=== PATIENT | male | born 1955 ===

== ENCOUNTER 2019-04-24 12:24 | Inpatient (IN) | payer MEDICAID ==
[~2019-04-24] VITALS: Ht 177.8 cm; Wt 69.1 kg
--- NOTE | 2019-04-24 14:45 | NUR ---
RECIEVED PT. PT HAS A L FA PIV THAT IS SL. HE IS A&O. BED LOCKED AND IN LOWEST POSITION. CALL LIGHT WITHIN REACH. PT SPEAKS LITTLE GHANAIAN SO CALLED FOR ENGINEERING SURVEYOR PHONE TO BE BROUGHT TO ROOM. WILL ROSALIA
[2019-04-24] MEDS ORDERED: SODIUM BICARBO650 MG PO (15:10)
[2019-04-24] MEDS ORDERED: LEVOTHYROXINE75 MCG PO (15:10)
[2019-04-24] MEDS ORDERED: VITAMIN D250000 UNIT PO (15:11)
[2019-04-24] MEDS ORDERED: NORVASC10 MG PO (15:12)
[2019-04-24] MEDS ORDERED: CARAFATE1 G PO (15:12)
[2019-04-24] MEDS ORDERED: THORAZINE25 MG PO (15:14)
[2019-04-24] MEDS ORDERED: REMERON15 MG PO (15:15)
[2019-04-24] MEDS ORDERED: PHENERGAN25 M1 PO (15:17)
[2019-04-24] MEDS ORDERED: GLUCOTROL ER2.5 MG PO (15:27)
[2019-04-24 15:34] VITALS: BP 124/61; BMI 22.4
[2019-04-24 17:20] VITALS: BP 124/61
[2019-04-24 20:00] VITALS: BP 152/76
--- NOTE | 2019-04-24 20:00 | NUR ---
ALERT RESTING IN BED, DENIES PAIN, FAMILY AT BEDSIDE, SEE SHIFT ASSESSEMEN, CALL LIGHT IN REACH, NO NEEDS VOICED AT THIS TIME
[2019-04-24 22:30] VITALS: BP 163/87
[2019-04-25 04:00] VITALS: BP 173/90
[2019-04-25 04:47] LABS: BASOPHILS 0.2 % (0-2); EOSINOPHILS 2.5 % (0-7); HEMATOCRIT 31.9 % (42.0-54.0); HEMOGLOBIN 11.4 g/dL (13.5-17.5); IMMATURE GRANULOCYTES 0.1 % (0-5); MCH 29.5 pg (26.0-34.0); MCHC 35.7 g/dL (31.0-37.0); MCV 82.6 fL (80.0-100.0); MEAN PLATELET VOLUME 9.5 fL (7.4-10.4); MONOCYTES 4.6 % (2-11); NEUTROPHILS 77.6 % (40-80); PLATELET COUNT 217 10x3/uL (130-400); RBC 3.86 10x6/uL (4.20-6.10); RDW 14.7 % (11.5-14.5); WBC 8.6 10x3/uL (4.8-10.8)
[2019-04-25 05:00] LABS: % SATURATION 67 % (15-55); IRON 82 ug/dl (35-150); TOTAL IRON BIND CAPACITY 121 ug/dl (260-445)
[2019-04-25 05:01] LABS: INR 1.24 (0.85-1.17); PROTIME 15.1 SECONDS (11.6-15.0)
[2019-04-25 05:07] LABS: UNSAT IRON BIND CAPACITY 39 ug/dl (150-375)
[2019-04-25 05:32] LABS: ANION GAP 14.9 mmol/L (8-16); CREATININE - SERUM 3.9 mg/dL (0.6-1.3); MAGNESIUM - SERUM 1.8 mg/dL (1.8-2.4); PHOSPHOROUS 3.5 mg/dL (2.5-4.9); POTASSIUM - SERUM 3.9 mmol/L (3.5-5.1)
[2019-04-25 05:36] LABS: HELICOBACTER PYLORI IGG POSITIVE (NEGATIVE)
[2019-04-25 08:00] VITALS: BP 131/83
[2019-04-25 12:04] VITALS: BP 150/59
[2019-04-25 14:31] LABS: ALBUMIN 1.8 g/dL (3.4-5.0); BILIRUBIN - TOTAL 0.48 mg/dL (0.2-1.3); CALCIUM 7.5 mg/dL (8.5-10.1); CREATININE - SERUM 3.8 mg/dL (0.6-1.3); PROTEIN - SERUM 5.1 g/dL (6.4-8.2)
[2019-04-25 15:07] VITALS: BP 141/76
--- NOTE | 2019-04-25 16:15 | NUR ---
RESTS WITH EYES CLOSED. IV PATENT. CALL LIGHT IN REACH. WILL CONT. PLAN OF CARE.
[2019-04-25 20:00] VITALS: BP 145/80
--- NOTE | 2019-04-25 20:00 | NUR ---
ALERT RESTING IN BED, DENIES PAIN OR NEEDS, STATES NAUSEA BETTER VOMITED X 1 TODAY, SEE SHIFT ASSESSMENT, CALL LIGHT IN REACH , FAMILY AT BEDSIDE
[2019-04-25 21:28] LABS: ANION GAP 15.9 mmol/L (8-16); CALCIUM 7.6 mg/dL (8.5-10.1); CARBON DIOXIDE 21.1 mmol/L (21.0-32.0); CREATININE - SERUM 3.7 mg/dL (0.6-1.3)
[2019-04-26] VITALS: BP 138/78
[2019-04-26 02:59] LABS: BASOPHILS 0.3 % (0-2); HEMATOCRIT 31.1 % (42.0-54.0); HEMOGLOBIN 10.9 g/dL (13.5-17.5); IMMATURE GRANULOCYTES 0.3 % (0-5); LYMPHOCYTES 22.9 % (15-50); MCH 29.3 pg (26.0-34.0); MCV 83.6 fL (80.0-100.0); MONOCYTES 4.9 % (2-11); NEUTROPHILS 67.6 % (40-80); PLATELET COUNT 204 10x3/uL (130-400); RBC 3.72 10x6/uL (4.20-6.10); RDW 14.6 % (11.5-14.5); WBC 7.5 10x3/uL (4.8-10.8)
[2019-04-26 03:16] LABS: ANION GAP 14.3 mmol/L (8-16); CALCIUM 7.4 mg/dL (8.5-10.1); CARBON DIOXIDE 19.7 mmol/L (21.0-32.0); CREATININE - SERUM 3.7 mg/dL (0.6-1.3); MAGNESIUM - SERUM 1.9 mg/dL (1.8-2.4); URIC ACID 8.2 mg/dL (2.6-7.2)
[2019-04-26 03:18] LABS: CREATININE - URINE 109.2 mg/dL (30-125); PROTEIN - URINE 1633.3 mg/dL (0.0-11.9)
[2019-04-26 03:25] LABS: APPEARANCE CLEAR (CLEAR); BILIRUBIN NEGATIVE (NEGATIVE); COLOR DK YELLOW (YELLOW); GLUCOSE 250 mg/dL (NEGATIVE); KETONE SMALL mg/dL (NEGATIVE); NITRITE POSITIVE (NEGATIVE); PROTEIN 3+ mg/dL (NEGATIVE); SPECIFIC GRAVITY 1.015 (1.005-1.020); UROBILINOGEN NORMAL (NORMAL)
[2019-04-26 03:30] LABS: WHITE CELLS - URINE 0-5 /hpf (NEGATIVE)
[2019-04-26 03:31] LABS: BACTERIA FEW /hpf (NEGATIVE); EPITHELIAL CELLS 0-5 /hpf (0-5); RED CELLS - URINE 0-5 /hpf (0-5)
[2019-04-26 04:00] VITALS: BP 156/84
[2019-04-26 08:39] LABS: ANION GAP 16.9 mmol/L (8-16); CALCIUM 7.7 mg/dL (8.5-10.1); CARBON DIOXIDE 20.1 mmol/L (21.0-32.0); CREATININE - SERUM 3.7 mg/dL (0.6-1.3)
[2019-04-26 09:51] VITALS: BP 144/80
[2019-04-26 11:10] LABS: ERYTHROPOIETIN 4.3 mIU/mL (2.6-18.5)
[2019-04-26 12:56] VITALS: BP 148/81
--- NOTE | 2019-04-26 13:05 | MORECARE ---
CASE MANAGEMENT DISCHARGE SUMMARY PATIENT: DIANE CASTREJON UNIT: [id number] ADM DATE: 04/24/19 AGE: 63 : 54 SEX: M ROOM/BED: D.2104 AUTHOR: HUYEN GANDHI PHYSICIAN: REFERRING PHYSICIAN: LYLE PRADO MD DATE OF SERVICE: 04/26/19 Discharge Plan Patient Name: DIANE CASTREJON Facility: [facility]:[place] : 1955 Planned Disposition: Home Anticipated Discharge Date: Discharge Date: Expected LOS: Initial Reviewer: [email or web address] Initial Review Date: 04/26/2019 Generated: 04/26/19 2:04 pm Comments DCP- Discharge Planning Updated by [email or web address]: Juli Garcia on 04/26/19 12:[address] Patient Name: DIANE CASTREJON Admission Status: Elective Accout number: [id number] Admission Date: 04-24-2019 : 1955 Admission Diagnosis: Attending: LYLE PRADO Current LOS: 2 Anticipated DC Date: Planned Disposition: Home Primary Insurance: [employer] [place] Discharge Planning Comments: CM MET WITH PATIENT ABOUT DC PLANNING/NEEDS. DAUGHTER LIBORIO AT BEDSIDE AND STATES PLANS TO DC TO HOME WITH HER. DISCUSSED HH AND REHAB AND SHE STATES NO NEED FOR SERVICES AT THIS TIME. CM TO FOLLOW AND ASSIST. Director Payment: Juli Garcia Patient Name: DIANE CASTREJON Page [phone] at 1305 All edits/amendments must be made on the electronic document DICTATION DATE: 04/26/19 1304 PLANING MACHINE OPERATOR: EVELIO 04/26/19 1304 RPT#: [id number] DC DATE: STATUS: ADM IN [facility] [address] [place] [address] END OF REPORT
[2019-04-26 14:09] VITALS: Ht 177.8 cm; Wt 69.1 kg
[2019-04-26 15:10] LABS: HELICOBACTER PYLORI IGM AB 19.2 units (0.0-8.9)
[2019-04-26 15:45] LABS: CALCIUM 7.6 mg/dL (8.5-10.1); CARBON DIOXIDE 19.2 mmol/L (21.0-32.0); CREATININE - SERUM 3.8 mg/dL (0.6-1.3); POTASSIUM - SERUM 4.2 mmol/L (3.5-5.1)
[2019-04-26 17:27] VITALS: BP 124/86
--- NOTE | 2019-04-26 19:17 | NUR ---
BEDSIDE REPORT RECEIVED FROM DAY SHIFT, PT CARE ASSUMED. INTRODUCED SELF AND WROTE NAME ON BOARD. PT LYING IN BED, WATCHING TV. DENIES ANY NEEDS AT THIS TIME. FAMILY AT BEDSIDE. BED IN LOWEST POSITION, SR X2, CALL LIGHT WITHIN REACH. WILL CONTINUE TO MONITOR.
[2019-04-26 20:00] VITALS: BP 172/90
--- NOTE | 2019-04-26 20:56 | NUR ---
FSBS 87, NIGHT TIME MEDS GIVEN, PER ORDER. DENIES ANY NEEDS AT THIS TIME. FAMILY AT BEDSIDE. BED IN LOWEST POSITION, SR X2, CALL LIGHT WITHIN REACH. WILL CONTINUE TO MONITOR.
[2019-04-26 21:32] LABS: ANION GAP 9.7 mmol/L (8-16); CALCIUM 7.6 mg/dL (8.5-10.1); CARBON DIOXIDE 21.6 mmol/L (21.0-32.0); CREATININE - SERUM 3.8 mg/dL (0.6-1.3); POTASSIUM - SERUM 4.3 mmol/L (3.5-5.1)
[2019-04-27] VITALS: BP 156/72
[2019-04-27 03:41] LABS: BASOPHILS 0.4 % (0-2); EOSINOPHILS 1.9 % (0-7); HEMATOCRIT 32.2 % (42.0-54.0); HEMOGLOBIN 11.2 g/dL (13.5-17.5); IMMATURE GRANULOCYTES 0.2 % (0-5); LYMPHOCYTES 18.4 % (15-50); MCH 28.9 pg (26.0-34.0); MCHC 34.8 g/dL (31.0-37.0); MCV 83.2 fL (80.0-100.0); MEAN PLATELET VOLUME 9.4 fL (7.4-10.4); MONOCYTES 4.2 % (2-11); NEUTROPHILS 74.9 % (40-80); PLATELET COUNT 202 10x3/uL (130-400); RBC 3.87 10x6/uL (4.20-6.10); RDW 14.7 % (11.5-14.5); WBC 8.3 10x3/uL (4.8-10.8)
[2019-04-27 04:00] VITALS: BP 167/75
[2019-04-27 04:10] LABS: ANION GAP 13.6 mmol/L (8-16); CALCIUM 7.9 mg/dL (8.5-10.1); CARBON DIOXIDE 22.9 mmol/L (21.0-32.0); CREATININE - SERUM 3.7 mg/dL (0.6-1.3); MAGNESIUM - SERUM 2.2 mg/dL (1.8-2.4); PHOSPHOROUS 3.5 mg/dL (2.5-4.9); POTASSIUM - SERUM 4.5 mmol/L (3.5-5.1)
[2019-04-27 08:00] VITALS: BP 155/88
--- NOTE | 2019-04-27 09:14 | EC ---
PATIENT:DIANE CASTREJON DATE OF SERVICE: 04/24/19 SEX: M MEDICAL RECORD: [id number] DATE OF : [birth year] LOCATION:D.M2 D.210 AGE OF PATIENT: 63 ADMISSION DATE: 04/24/19 REFERRING PHYSICIAN: INTERPRETING PHYSICIAN: KAL CIFUENTES MD ECHOCARDIOGRAM REPORT ECHO CHARGES 4 ECHO COMPLETE Date: 04/25/19 CLINICAL DIAGNOSIS: ELEVATED PRO BNP H/O EDEMA ECHOCARDIOGRAPHIC MEASUREMENTS (adult normal given) AC root (d.<3.7cm) 3.4 cm LV Septum d (<1.2 cm> 1.5 cm Valve Excursion 2.2 cm LV Septum (systole) 2.2 cm Left Atria (s.<4.0cm> 3.8 cm LVPW d(<1.2cm) 1.5 cm RV (d.<2.3cm) 2.1 cm LVPW (sytole) 2.1 cm LV diastole(<5.6CM) 5.2 cm MV E-F(>70mm/sec) cm LV systole 2.9 cm LVOT Diameter 2.0 cm MV exc.(>10mm) cm Est.ejection fraction (50-75%) % DOPPLER: LVIT cm/sec A 92.0 cm/sec E 72.0 cm/sec LA cm/sec RVSP 52.0 mmHg LVOT 119 cm/sec AOP1/2T m/s Asc. Ao 198 cm/sec RVOT 142 cm/sec RA cm/sec PA 151 cm/sec AV Gradient Peak 16.0 mmHg AV Mean 6.7 mmHg AV Area 2.2 cm MV Gradient Peak 4.1 mmHg MV Mean 1.5 mmHg MV Area cm COMMENTS: Credit Control Administrator: 1 RADHA CHERRYOE Family Law Mediator: 1 Dr. Cifuentes TAPE# PACS Pericardial Effusion N DATE OF SERVICE: FINDINGS: 1. Left ventricular chamber size is within normal limits. Left ventricular systolic function is normal. Overall ejection fraction estimated at 60%. 2. Left atrium is within normal limits. Right atrium and right ventricular chamber sizes are mildly dilated. 3. Valvular structures have normal structure and motion. 4. Doppler interrogation reveals trace mitral regurgitation, trace tricuspid regurgitation, no other valvular insufficiency or stenosis. Pulmonary systolic ECHOCARDIOGRAM REPORT [id number] DIANE CASTREJON pressure is estimated 52 mmHg. 5. No evidence of pericardial effusion or left ventricular thrombus. TRANSINT:[id number] Voice Confirmation ID: [id number] DOCUMENT ID: [id number] KAL CIFUENTES MD at 0914 CC: [id number] DICTATION DATE: 04/25/19 1245 TURNER SPLITTER MACHINE OPERATOR: 04/25/19 1339 ADM IN [facility] [address] [place] [address]
[2019-04-27 09:31] LABS: ANION GAP 12.3 mmol/L (8-16); CALCIUM 7.6 mg/dL (8.5-10.1); CARBON DIOXIDE 22.9 mmol/L (21.0-32.0); CREATININE - SERUM 3.7 mg/dL (0.6-1.3); POTASSIUM - SERUM 4.2 mmol/L (3.5-5.1)
[2019-04-27 12:00] VITALS: BP 172/93
[2019-04-27 15:16] LABS: ANION GAP 11.7 mmol/L (8-16); CALCIUM 7.3 mg/dL (8.5-10.1); CARBON DIOXIDE 21.5 mmol/L (21.0-32.0); CREATININE - SERUM 3.6 mg/dL (0.6-1.3); POTASSIUM - SERUM 4.2 mmol/L (3.5-5.1)
[2019-04-27 16:00] VITALS: BP 149/80
--- NOTE | 2019-04-27 19:10 | NUR ---
BEDSIDE REPORT RECEIVED FROM DAY SHIFT, PT CARE ASSUMED. WROTE NAME ON BOARD, PT LYING IN BED WATCHING TV, AAOX4, DENIES ANY NEEDS AT THIS TIME. FAMILY AT BEDSIDE. BED IN LOWEST POSITION, SR X2, CALL LIGHT WITHIN REACH. WILL CONTINUE TO MONITOR.
[2019-04-27 20:00] VITALS: BP 150/84
[2019-04-27 21:28] LABS: ANION GAP 10.6 mmol/L (8-16); CALCIUM 7.2 mg/dL (8.5-10.1); CARBON DIOXIDE 23.7 mmol/L (21.0-32.0); CREATININE - SERUM 3.6 mg/dL (0.6-1.3); POTASSIUM - SERUM 4.3 mmol/L (3.5-5.1)
[2019-04-28] VITALS: BP 144/84
[2019-04-28 04:14] LABS: BASOPHILS 0.7 % (0-2); EOSINOPHILS 4.9 % (0-7); HEMATOCRIT 29.4 % (42.0-54.0); HEMOGLOBIN 10.2 g/dL (13.5-17.5); LYMPHOCYTES 29.9 % (15-50); MCH 29.9 pg (26.0-34.0); MCHC 34.7 g/dL (31.0-37.0); MEAN PLATELET VOLUME 9.3 fL (7.4-10.4); MONOCYTES 6.4 % (2-11); NEUTROPHILS 58.1 % (40-80); PLATELET COUNT 195 10x3/uL (130-400); RBC 3.41 10x6/uL (4.20-6.10); RDW 14.6 % (11.5-14.5); WBC 7.6 10x3/uL (4.8-10.8)
[2019-04-28 04:19] LABS: MCV 86.2 fL (80.0-100.0)
[2019-04-28 04:30] VITALS: BP 168/88
[2019-04-28 04:33] LABS: ANION GAP 9.7 mmol/L (8-16); CALCIUM 7.3 mg/dL (8.5-10.1); CARBON DIOXIDE 24.2 mmol/L (21.0-32.0); CREATININE - SERUM 3.5 mg/dL (0.6-1.3); MAGNESIUM - SERUM 2.2 mg/dL (1.8-2.4); POTASSIUM - SERUM 3.9 mmol/L (3.5-5.1)
[2019-04-28 04:59] LABS: PHOSPHOROUS 2.2 mg/dL (2.5-4.9)
--- NOTE | 2019-04-28 07:15 | NUR ---
PT LYING IN BED. EYES CLOSED. CHEST RISING AND FALLING. AT BEDSIDE. PT HAS NO FURTHER NEEDS AT THIS TIME. BED LOW. CL IN REACH.
[2019-04-28 08:20] VITALS: BP 157/87
[2019-04-28 09:12] LABS: ANION GAP 10.4 mmol/L (8-16); CALCIUM 7.2 mg/dL (8.5-10.1); CARBON DIOXIDE 23.6 mmol/L (21.0-32.0); CREATININE - SERUM 3.4 mg/dL (0.6-1.3)
[2019-04-28 12:13] VITALS: BP 142/80
--- NOTE | 2019-04-28 12:29 | NUR ---
Nutrition Follow-up: Family reports pt tolerating full liquids this AM. Diet advanced to Diabetic. Wt: 152# (-4#) No BMs recorded Labs noted: Na 149, K+ 3.9, Glu 109, PO4 2.2, Ca 7.3, Alb 1.8 Meds noted: D5W @ 100, Remeron, Humalog May consider cardiac carb consistent diet 2/2 cardiac history. Encourage PO intake. [place] food preferences within diet restrictions. RD following.
[2019-04-28 14:53] LABS: ANION GAP 9.6 mmol/L (8-16); CALCIUM 7.2 mg/dL (8.5-10.1); CARBON DIOXIDE 24.4 mmol/L (21.0-32.0); CREATININE - SERUM 3.3 mg/dL (0.6-1.3)
[2019-04-28 16:14] VITALS: BP 119/74
--- NOTE | 2019-04-28 19:15 | NUR ---
EVENING ROUNDS COMPLETE. PT LAYING IN BED. FAMILY AT BEDSIDE. NO SIGNS OF DISTRESS. PT DENIES ANY PAIN AT THIS TIME. CL IN REACH, BED IN LOWEST POSITION. CONT WITH POC.
[2019-04-28 20:00] VITALS: BP 144/64
[2019-04-28 20:00] LABS: ANION GAP 11.6 mmol/L (8-16); CALCIUM 7.1 mg/dL (8.5-10.1); CARBON DIOXIDE 23.9 mmol/L (21.0-32.0); CREATININE - SERUM 3.3 mg/dL (0.6-1.3); POTASSIUM - SERUM 4.5 mmol/L (3.5-5.1)
[2019-04-29] VITALS: BP 133/58
[2019-04-29 02:11] LABS: ANION GAP 10.9 mmol/L (8-16); CARBON DIOXIDE 23.5 mmol/L (21.0-32.0); CREATININE - SERUM 3.2 mg/dL (0.6-1.3); POTASSIUM - SERUM 4.4 mmol/L (3.5-5.1)
[2019-04-29 04:00] VITALS: BP 177/94
[2019-04-29 05:11] LABS: BASOPHILS 0.3 % (0-2); EOSINOPHILS 3.5 % (0-7); HEMATOCRIT 33.5 % (42.0-54.0); HEMOGLOBIN 11.4 g/dL (13.5-17.5); IMMATURE GRANULOCYTES 0.2 % (0-5); LYMPHOCYTES 22.2 % (15-50); MCH 29.5 pg (26.0-34.0); MCV 86.8 fL (80.0-100.0); MEAN PLATELET VOLUME 9.8 fL (7.4-10.4); MONOCYTES 6.6 % (2-11); NEUTROPHILS 67.2 % (40-80); PLATELET COUNT 205 10x3/uL (130-400); RBC 3.86 10x6/uL (4.20-6.10); RDW 14.6 % (11.5-14.5)
[2019-04-29 05:24] LABS: WBC 10.8 10x3/uL (4.8-10.8)
[2019-04-29 05:41] LABS: ANION GAP 12.9 mmol/L (8-16); CALCIUM 7.3 mg/dL (8.5-10.1); CARBON DIOXIDE 22.6 mmol/L (21.0-32.0); CREATININE - SERUM 3.2 mg/dL (0.6-1.3); MAGNESIUM - SERUM 2.2 mg/dL (1.8-2.4); PHOSPHOROUS 2.7 mg/dL (2.5-4.9); POTASSIUM - SERUM 4.5 mmol/L (3.5-5.1)
[2019-04-29 09:17] VITALS: BP 144/83
[2019-04-29 09:44] LABS: CALCIUM 7.5 mg/dL (8.5-10.1); CARBON DIOXIDE 24.5 mmol/L (21.0-32.0); CREATININE - SERUM 3.3 mg/dL (0.6-1.3); POTASSIUM - SERUM 4.5 mmol/L (3.5-5.1)
[2019-04-29 12:29] VITALS: BP 173/90
--- NOTE | 2019-04-29 13:34 | NUR ---
I have reviewed this patient and I concur with the Shift Assessment completed by the Licensed Practical Nurse today this shift.
--- NOTE | 2019-04-29 14:11 | NUR ---
RESTING QUIETLY POSITIONED ON LEFT SIDE. PT IS A/A/OX4. NO REQUESTS AT THIS TIME AND ASSESSMENT COMPLETED. WILL CONTINUE POC. CALL LIGHT IN REACH.
--- NOTE | 2019-04-29 14:12 | NUR ---
ORDER RECEIVED FOR STRICT I/O. URINAL TAKEN TO ROOM AND EXPLAINED TO HIS AND SHE INTERPRETED. BOTH VOICE UNDERSTANDING. ALSO INSTRUCTED ABOUT OBTAINING A STOOL SPECIMEN.
[2019-04-29 16:52] VITALS: BP 145/78
--- NOTE | 2019-04-29 19:00 | NUR ---
EVENING ROUNDS COMPLETE. PT LAYING IN BED. FAMILY AT BEDSIDE. NO SIGNS OF DISTRESS. PT DENIES ANY PAIN AT THIS TIME. AAOX4, VSS. CL IN REACH, BED IN LOWEST POSITION. CONT WITH POC
[2019-04-29 20:00] VITALS: BP 119/88
[2019-04-30] VITALS: BP 137/87
[2019-04-30 04:00] VITALS: BP 154/80
[2019-04-30 04:40] LABS: BASOPHILS 0.5 % (0-2); EOSINOPHILS 4.4 % (0-7); HEMOGLOBIN 9.8 g/dL (13.5-17.5); IMMATURE GRANULOCYTES 0.2 % (0-5); LYMPHOCYTES 20.9 % (15-50); MCH 28.8 pg (26.0-34.0); MCHC 33.8 g/dL (31.0-37.0); MCV 85.3 fL (80.0-100.0); MEAN PLATELET VOLUME 9.5 fL (7.4-10.4); MONOCYTES 6.7 % (2-11); NEUTROPHILS 67.3 % (40-80); PLATELET COUNT 173 10x3/uL (130-400); RDW 14.3 % (11.5-14.5); WBC 8.4 10x3/uL (4.8-10.8)
[2019-04-30 04:55] LABS: CARBON DIOXIDE 25.1 mmol/L (21.0-32.0); POTASSIUM - SERUM 4.6 mmol/L (3.5-5.1)
[2019-04-30 04:57] LABS: ANION GAP 10.5 mmol/L (8-16); CALCIUM 6.9 mg/dL (8.5-10.1)
[2019-04-30 08:36] VITALS: BP 159/89
[2019-04-30 12:17] VITALS: BP 155/95
[2019-04-30 16:45] VITALS: BP 174/81
--- NOTE | 2019-04-30 17:04 | NUR ---
ALERT AND ORIENTED X4. SITTING UP IN BED. SPOUSE AT BEDSIDE. SPOUSE ASSIST WITH TRANSLATION. IV FLUIDS INFUSING ORDERED. DENIES ANY NEEDS AT THIS TIME. CONTINUE PLAN OF CARE AND SAFETY PRECAUTIONS.
--- NOTE | 2019-04-30 19:10 | NUR ---
PATIENT LAYING IN BED. AT BEDSIDE. NO COMPLAINTS AT THIS TIME. NO DISTRESS NOTED.
[2019-04-30 20:00] VITALS: BP 157/79
[2019-05-01] VITALS: BP 143/83
[2019-05-01 04:30] VITALS: BP 150/84
--- NOTE | 2019-05-01 05:54 | NUR ---
I have reviewed this patient and I concur with the Shift Assessment completed by the Licensed Practical Nurse today this shift.
--- NOTE | 2019-05-01 07:20 | NUR ---
RECIEVED REPORT. RESTING IN BED WITH EYES CLOSED. SPOUSE AT BEDSIDE. RESPIRATIONS EVEN AND REGULAR. CONTINUE PLAN OF CARE AND SAFETY PRECAUTIONS.
[2019-05-01 08:08] VITALS: BP 159/90
[2019-05-01 08:35] LABS: BASOPHILS 0.4 % (0-2); EOSINOPHILS 3.5 % (0-7); HEMOGLOBIN 9.8 g/dL (13.5-17.5); IMMATURE GRANULOCYTES 0.1 % (0-5); LYMPHOCYTES 21.5 % (15-50); MCH 29.3 pg (26.0-34.0); MCHC 33.8 g/dL (31.0-37.0); MCV 86.8 fL (80.0-100.0); MEAN PLATELET VOLUME 9.5 fL (7.4-10.4); MONOCYTES 5.6 % (2-11); NEUTROPHILS 68.9 % (40-80); PLATELET COUNT 185 10x3/uL (130-400); RBC 3.34 10x6/uL (4.20-6.10); RDW 14.5 % (11.5-14.5); WBC 7.9 10x3/uL (4.8-10.8)
[2019-05-01 08:46] LABS: ANION GAP 11.3 mmol/L (8-16); CALCIUM 7.4 mg/dL (8.5-10.1); CARBON DIOXIDE 24.3 mmol/L (21.0-32.0); POTASSIUM - SERUM 4.6 mmol/L (3.5-5.1)
[2019-05-01 11:54] VITALS: BP 128/78
[2019-05-01 16:13] VITALS: BP 128/80
[2019-05-01 20:00] VITALS: BP 166/84
[2019-05-02 00:30] VITALS: BP 170/76
--- NOTE | 2019-05-02 03:56 | NUR ---
I have reviewed this patient and I concur with the Shift Assessment completed by the Licensed Practical Nurse today this shift.
[2019-05-02 04:30] VITALS: BP 143/76
[2019-05-02 07:35] VITALS: BP 153/86
[2019-05-02 08:32] LABS: BASOPHILS 0.3 % (0-2); EOSINOPHILS 4.2 % (0-7); HEMATOCRIT 26.7 % (42.0-54.0); HEMOGLOBIN 9.1 g/dL (13.5-17.5); IMMATURE GRANULOCYTES 0.3 % (0-5); MCH 29.4 pg (26.0-34.0); MCHC 34.1 g/dL (31.0-37.0); MCV 86.1 fL (80.0-100.0); MEAN PLATELET VOLUME 9.9 fL (7.4-10.4); MONOCYTES 6.8 % (2-11); NEUTROPHILS 61.4 % (40-80); PLATELET COUNT 190 10x3/uL (130-400); RDW 14.5 % (11.5-14.5); WBC 7.1 10x3/uL (4.8-10.8)
[2019-05-02 08:44] LABS: ANION GAP 11.4 mmol/L (8-16); CARBON DIOXIDE 23.1 mmol/L (21.0-32.0); CREATININE - SERUM 2.7 mg/dL (0.6-1.3); POTASSIUM - SERUM 4.5 mmol/L (3.5-5.1)
[2019-05-02 09:02] LABS: CALCIUM 6.9 mg/dL (8.5-10.1)
--- NOTE | 2019-05-02 09:18 | NUR ---
CRITICAL CA OF 6.9 TAKEN AND GIVEN TO Amna MAYS RN BEDSIDE NURSE.
[2019-05-02 11:07] VITALS: BP 158/80
[2019-05-02] MEDS ORDERED: AMOXICILLIN500 M1 PO (11:08)
[2019-05-02] MEDS ORDERED: CLARITHROMYCIN500 M1 PO (11:12)
--- NOTE | 2019-05-02 13:07 | NUR ---
WHEN ASKED IF PATIENT WANTS TO RECEIVE THE FLU SHOT, DAUGHTER STATES THAT HE WILL FOLLOW UP WITH HIS PRIMARY FOR THE SHOT.
--- NOTE | 2019-05-02 16:20 | NUR ---
ALERT AND ORIENTED X4. SITTING UP IN BED. FAMILY TRANSLATE DISCHARGE INSTRUCTIONS TO PATIENT. DISCHARGE PAPERS SIGNED ON CHART. DC LT FA IV TIP INTACT. ESCORT TO RIDE VIA WHEELCHAIR. REMAINS FREE FROM INJURY.
--- NOTE | 2019-05-03 06:59 | MORECARE ---
CASE MANAGEMENT DISCHARGE SUMMARY PATIENT: DIANE CASTREJON UNIT: [id number] ADM DATE: 04/24/19 AGE: 63 : 54 SEX: M ROOM/BED: D.2104 AUTHOR: HUYEN GANDHI PHYSICIAN: REFERRING PHYSICIAN: LYLE PRADO MD DATE OF SERVICE: 05/03/19 Discharge Plan Patient Name: DIANE CASTREJON [facility] [facility] 1955 Planned Disposition: Home Anticipated Discharge Date: 05/02/19 Discharge Date: 05/02/2019 Expected LOS: 8 Initial Reviewer: [email or web address] Initial Review Date: 04/26/2019 Generated: 05/03/19 7:59 am DCP- Discharge Planning Updated by [email or web address]: Juli Garcia on 04/26/19 12:[address] Patient Name: DIANE CASTREJON Admission Status: Elective Accout number: [id number] Admission Date: 04-24-2019 : 1955 Admission Diagnosis: Attending: LYLE PRADO Current LOS: 2 Anticipated DC Date: Planned Disposition: Home Primary Insurance: [employer] [place] Discharge Planning Comments: CM MET WITH PATIENT ABOUT DC PLANNING/NEEDS. DAUGHTER LIBORIO AT BEDSIDE AND STATES PLANS TO DC TO HOME WITH HER. DISCUSSED HH AND REHAB AND SHE STATES NO NEED FOR SERVICES AT THIS TIME. CM TO FOLLOW AND ASSIST. Mail Distribution Clerk: Juli Garcia Last DP export: 04/26/19 12:05 p Patient Name: DIANE CASTREJON Page [phone] at 0659 All edits/amendments must be made on the electronic document DICTATION DATE: 05/03/1959 LINEN WORKER: EVELIO 05/03/1960 RPT#: [id number] DC DATE:05/02/19 STATUS: DIS IN [facility] [address] [place] [address] END OF REPORT
== END 2019-05-02 16:28 | disposition home or self-care (01) | DRG 683 ==
LOC: D.M2 12:24 → EDSEX 13:36 → D.M2 13:36
PROVIDERS: Family Medicine; Internal Medicine; ADMIT Internal Medicine Nephrology; ATTEND Internal Medicine Nephrology
DX: N17.9 Acute kidney failure, unspecified (principal); I13.0 Hypertensive heart and chronic kidney disease with heart failure and stage 1 through stage 4 chronic kidney disease, or unspecified chronic kidney disease; A04.8 Other specified bacterial intestinal infections; E87.0 Hyperosmolality and hypernatremia; E44.0 Moderate protein-calorie malnutrition; N39.0 Urinary tract infection, site not specified; I50.32 Chronic diastolic (congestive) heart failure; N18.4 Chronic kidney disease, stage 4 (severe); E11.22 Type 2 diabetes mellitus with diabetic chronic kidney disease; E03.9 Hypothyroidism, unspecified; E78.5 Hyperlipidemia, unspecified; D64.9 Anemia, unspecified; E86.0 Dehydration; Z68.22 Body mass index [BMI] 22.0-22.9, adult

== ENCOUNTER 2019-09-19 08:12 | Day surgery (SDC) | payer MEDICARE ==
[~2019-09-19] VITALS: Ht 177.8 cm; Wt 79.4 kg
[~2019-09-19 08:12] MED LIST: AMOXICILLIN500 M1 PO; CARAFATE1 G PO; CLARITHROMYCIN500 M1 PO; GLUCOTROL ER2.5 MG PO; LEVOTHYROXINE75 MCG PO; NORVASC10 MG PO; PHENERGAN25 M1 PO; REMERON15 MG PO; SODIUM BICARBO650 MG PO; THORAZINE25 MG PO; VITAMIN D250000 UNIT PO
[2019-09-19 08:39] LABS: BASOPHILS 0.2 % (0-2); EOSINOPHILS 2.8 % (0-7); HEMATOCRIT 40.2 % (42.0-54.0); HEMOGLOBIN 13.2 g/dL (13.5-17.5); IMMATURE GRANULOCYTES 0.3 % (0-5); LYMPHOCYTES 15.7 % (15-50); MCH 28.1 pg (26.0-34.0); MCHC 32.8 g/dL (31.0-37.0); MCV 85.5 fL (80.0-100.0); MEAN PLATELET VOLUME 9.6 fL (7.4-10.4); MONOCYTES 6.3 % (2-11); NEUTROPHILS 74.7 % (40-80); PLATELET COUNT 188 10x3/uL (130-400); RDW 13.8 % (11.5-14.5); WBC 12.8 10x3/uL (4.8-10.8)
[2019-09-19 08:49] LABS: ANION GAP 13.6 mmol/L (8-16); CALCIUM 8.1 mg/dL (8.5-10.1); CARBON DIOXIDE 27.5 mmol/L (21.0-32.0); CREATININE - SERUM 7.5 mg/dL (0.6-1.3); POTASSIUM - SERUM 5.1 mmol/L (3.5-5.1)
[2019-09-19 08:52] LABS: INR 0.96 (0.85-1.17); PROTIME 12.7 SECONDS (11.6-15.0)
[2019-09-19] MEDS ORDERED: HYDRALAZINE HCL25 MG PO (09:41)
[2019-09-19] MEDS ORDERED: HYDRALAZINE HC100 MG PO (09:42)
[2019-09-19] MEDS ORDERED: FUROSEMIDE40 MG PO (09:43)
[2019-09-19] MEDS ORDERED: GLUCOTROL ER2.5 MG PO (09:44)
[2019-09-19] MEDS ORDERED: RENVELA800 MG PO (09:44)
[2019-09-19] MEDS ORDERED: CATAPRES TTS-20.2 MG TD (09:44)
[2019-09-19 09:59] VITALS: Ht 177.8 cm; Wt 79.4 kg
[2019-09-19] MEDS ORDERED: ULTRAM50 MG PO (15:14)
--- NOTE | 2019-09-19 16:55 | NUR ---
DC INSTRUCTIONS GIVEN TO PT/FAMILY. STATE UNDERSTANDING. DC'D IV CATH FULLY INTACT. LEFT ARM IS NUMB AND IN SLING.
--- NOTE | 2019-09-19 17:15 | NUR ---
PT LEFT UNIT VIA WC AT 1708
--- NOTE | 2019-09-21 17:35 | OP ---
PATIENT NAME: DIANE LIZARRAGA MEDICAL RECORD: [id number] :[birth year] LOCATION:D.OPS ADMISSION DATE: SURGEON: MICHELE ARMANDO MD DATE OF OPERATION: 09/19/2019 REFERRED BY: Colten Green MD PREOPERATIVE DIAGNOSES: End-stage renal disease and dependence on hemodialysis. OPERATION PERFORMED: Creation of a Vangie type brachiobasilic arteriovenous fistula as a planned first stage of 2 stages to create a brachial artery to translocated basilic vein AV fistula. SURGEON: Michele Armando MD ANESTHESIA: Regional nerve block plus general with LMA per CORPORATE EVENT PLANNER. PREOPERATIVE NOTE: Mr. Sylvia Levy is a 64-year-old male, patient of Dr. Green. He has end-stage renal disease, on chronic hemodialysis with a tunneled catheter. He needs a long-term access. He has had preoperative vein mapping and has a basilic dominant systems bilaterally. He is right handed, we plan a left arm or forearm fistula certainly hope to avoid a graft. His veins were quite small on his preoperative mapping. He may need a 2 stage basilic vein procedure. Under regional and general anesthesia in supine position, the patient was prepped and draped in a sterile manner. I applied a Java drain as a proximal venous tourniquet and applied topical nitroglycerin ointment to the arm and forearm. The superficial veins had dilated and were standing up very nicely following the regional nerve block and I actually had hoped that I might be able to construct a radiocephalic AV fistula. Cephalic vein above the antecubital space is essentially nonexistent. So I had hoped to be able to stay in the forearm with a fistula. Ultrasound demonstrated a satisfactory distal cephalic vein somewhat small radial artery proximally. There was a large median cubital vein draining to the basilic and a large brachial artery, so that I knew he can have a primary brachiobasilic fistula. I made a longitudinal incision at the wrist and exposed the distal cephalic vein and dissected it from the surrounding tissues. Despite careful treatment and intermittent dilatation and topical applications of papaverine, the vein went into intense spasm. It was ligated distally then divided and bevelled and then flushed and distended hydrostatically with heparinized saline. Despite these efforts, the vein simply was not usable and it was ligated subsequently and abandoned. I made a transverse incision over the medial aspect of the antecubital space and exposed the brachial artery and the median cubital vein. These vessels were dissected and controlled with Silastic loops. The artery just at its bifurcation. The artery was opened and was occluded and then opened and flushed proximally and distally with heparinized saline. The arteriotomy was approximately 6 mm in diameter length. A corresponding venotomy was made in the vein, which was flushed proximally and distally with heparinized saline. The anastomosis was completed with running 7-0 Prolene and when complete the occluding loops and clamps were released, excellent flow developed within the new fistula. There was actually distal flow into the forearm, but it was minimal compared to the proximal flow into the basilic vein. The wound was irrigated with gentamicin solution and closed without the use of drain OPERATIVE REPORT [id number] DIANE LIZARRAGA approximating subcutaneous tissues with interrupted 3-0 Vicryl and running intracuticular 4-0 Stratafix for skin. Both wounds were closed in that manner. The skin incisions were also sealed and closed with Dermabond glue and dressed with Maxorb Ag, Tegaderm, and Cavilon skin prep. The patient was awakened from his anesthetic, he was placed in a sling and taken to the recovery room with a very nice functioning fistula in the medial left arm. This fistula will need to be a translocated in the next 2-4 weeks. PLAN: For the patient to go home today and return to see me in my office in 2 weeks. He is to leave the initial operative dressing intact and keep the area dry and clean until that visit. He was given a prescription for tramadol for pain. Blood loss during the operation was estimated at 2 mL, was unreplaced. Sponges, instruments, and needles were accounted for. No drain was used and no surgical specimen submitted. TRANSINT:[id number] Voice Confirmation ID: [id number] DOCUMENT ID: [id number] cc: [facility] MICHELE Castañeda MD at 5091 CC: COLTEN GREEN [id number] DICTATION DATE: 09/20/19 165 SAP SOLUTION MANAGER CONSULTANT: 09/20/192136 [facility] 09/19/19 [facility] [address] [place] [address]
== END 2019-09-19 17:08 | disposition home or self-care (01) ==
LOC: D.OPS 08:12
PROVIDERS: Surgery; ATTEND Internal Medicine Nephrology
DX: N18.5 Chronic kidney disease, stage 5 (principal); Z99.2 Dependence on renal dialysis; I10 Essential (primary) hypertension; E11.22 Type 2 diabetes mellitus with diabetic chronic kidney disease

== ENCOUNTER 2019-12-26 07:38 | Day surgery (SDC) | payer MEDICARE ==
[~2019-12-26] VITALS: Ht 177.8 cm; Wt 84.1 kg
--- NOTE | ~2019-12-26 | OP ---
PATIENT NAME: DIANE LIZARRAGA MEDICAL RECORD: [id number] :[birth year] [facility] DATE: SURGEON: MICHELE ARMANDO MD DATE OF OPERATION: 12/26/2019 REFERRED BY: Colten Green MD PREOPERATIVE DIAGNOSES: End-stage renal disease and dependence on dialysis and mechanical complication of arteriovenous fistula. POSTOPERATIVE DIAGNOSES: End-stage renal disease and dependence on dialysis and mechanical complication of arteriovenous fistula. OPERATION PERFORMED: Revision of AV fistula of left arm without thrombectomy to create a translocated brachiobasilic arteriovenous fistula. SURGEON: Michele Armando MD ANESTHESIA: General endotracheal per DESULFURIZER HAND. PREOPERATIVE NOTE: This 64-year-old gentleman from [place] has dialysis in [place]. Dr. Green is his rural mail carrier. Just over 3 months ago, I created a Vangie-type brachiobasilic AV fistula in his left arm with the intention at that time of returning him to the operating room within 3-4 weeks for creation of a translocated fistula. He was, however, lost to follow up until he just recently was seen at [facility] and it was realized or acknowledged that he needed a [place] of the [place]. He is brought to the operating room for that today. DESCRIPTION OF PROCEDURE: Under general anesthesia, the patient was placed in supine position and prepped and draped in a sterile manner. I examined him with ultrasound and noted the basilic vein to be well-developed and greater than a centimeter in diameter from the level of the antecubital space to the axilla. The vein was then exposed and mobilized to the long incision placed directly over it. I did not want to do a new arterial anastomosis and there was otherwise not enough length of vein to place the vein in a more medial tunnel as is often done in this procedure. I did have to dissect only a minimum number of superficial veins off of the anterior or superficial surface of the vein and it was really not necessary to place it in a tunnel to prevent nerve injury and so I simply irrigated the wound with Ancef and gentamicin solution, infiltrated it with 0.25% Marcaine and closed the wound superficial layer with interrupted inverted 3-0 Vicryl without the use of a drain. I then closed the skin directly over the translocated basilic vein with running intracuticular 4-0 Stratafix. The incision was sealed with glue and dressed with Maxorb Ag, Tegaderm, and Cavilon skin prep and the patient was awakened from his anesthetic and taken to the recovery room. Minimal blood loss occurred during the procedure, less than 5 cc. None was replaced. Sponges, instruments, and needles were accounted for. No drain was used and no surgical specimen was submitted for histopathology. PLAN: The patient will be returning to see me in my office week after next. He is to keep the original operative dressing dry and intact. If it gets wet or needs to be changed, he can clean the wound with soap and water and then covered with clean, dry sterile gauze dressings as needed. He was given a prescription for minimum number of [place] 5/325 for postoperative pain. He will continue his same home medications, diet and his usual dialysis schedule. OPERATIVE REPORT [id number] DIANE LIZARRAGA TRANSINT:[id number] Voice Confirmation ID: [id number] DOCUMENT ID: [id number] cc: MICHELE Day MD CC: COLTEN GREEN [id number] DICTATION DATE: 12/29/191103 DATA WAREHOUSING ENGINEER: 12/29/191942 [facility] 12/26/19 [facility] [address] [place] [address]
[~2019-12-26 07:38] MED LIST changes: +CATAPRES TTS-20.2 MG TD; +FUROSEMIDE40 MG PO; +HYDRALAZINE HC100 MG PO; +HYDRALAZINE HCL25 MG PO; +RENVELA800 MG PO; +ULTRAM50 MG PO
[2019-12-26 08:21] LABS: BASOPHILS 0.3 % (0-2); EOSINOPHILS 4.3 % (0-7); HEMATOCRIT 38.5 % (42.0-54.0); HEMOGLOBIN 12.8 g/dL (13.5-17.5); IMMATURE GRANULOCYTES 0.2 % (0-5); LYMPHOCYTES 20.8 % (15-50); MCH 31.8 pg (26.0-34.0); MCHC 33.2 g/dL (31.0-37.0); MCV 95.5 fL (80.0-100.0); MEAN PLATELET VOLUME 9.4 fL (7.4-10.4); MONOCYTES 8.7 % (2-11); NEUTROPHILS 65.7 % (40-80); PLATELET COUNT 190 10x3/uL (130-400); RBC 4.03 10x6/uL (4.20-6.10); RDW 13.3 % (11.5-14.5)
[2019-12-26 08:27] LABS: INR 1.17 (0.85-1.17); PROTIME 14.9 SECONDS (11.6-15.0)
[2019-12-26 08:28] LABS: ANION GAP 17.4 mmol/L (8-16); CALCIUM 8.6 mg/dL (8.5-10.1); CARBON DIOXIDE 27.8 mmol/L (21.0-32.0); CREATININE - SERUM 8.2 mg/dL (0.6-1.3); POTASSIUM - SERUM 5.2 mmol/L (3.5-5.1)
[2019-12-26 10:06] VITALS: Ht 177.8 cm; Wt 84.1 kg
[2019-12-26] MEDS ORDERED: HYDROCODON-ACE1 EAC7 PO (16:48)
== END 2019-12-26 18:35 | disposition home or self-care (01) ==
LOC: D.OPS 07:38
PROVIDERS: Surgery; ATTEND Internal Medicine Nephrology
DX: E11.22 Type 2 diabetes mellitus with diabetic chronic kidney disease (principal); I12.0 Hypertensive chronic kidney disease with stage 5 chronic kidney disease or end stage renal disease; N18.6 End stage renal disease; Z99.2 Dependence on renal dialysis; T82.590A Other mechanical complication of surgically created arteriovenous fistula, initial encounter; Z79.4 Long term (current) use of insulin